=== PATIENT | male | born 1940 | race Caucasian/White ===

== ENCOUNTER 2018-07-13 13:43 | Inpatient (IN) | payer MEDICARE ==
[~2018-07-13] VITALS: Ht 180.3 cm; Wt 90.0 kg
[2018-07-13 16:50] LABS: CHLORIDE 108 mEq/L (98-107)
[2018-07-13 16:51] LABS: BASOPHILS % 0.6 % (0.0-2.0); EOSINOPHILS % 0.8 % (0.0-5.0); HEMATOCRIT. 44.2 % (42.0-52.0); HEMOGLOBIN. 14.4 g/dL (14.0-18.0); LYMPHOCYTES % 11.6 % (20.0-50.0); MEAN CORPUSCULAR HEMOGLOBIN 23.4 pg (28.0-32.0); MEAN CORPUSCULAR VOLUME 71.9 fL (80.0-94.0); MEAN PLATELET VOLUME 8.6 fl (7.4-10.4); MONOCYTES % 5.1 % (2.0-8.0); NEUTROPHILS % 81.9 % (40.0-76.0); PLATELET 196 x1000/uL (130-400); RED BLOOD CELL COUNT 6.14 mill/uL (4.7-6.1); RED CELL DISTRIBUTION WIDTH 15.8 % (11.6-14.6)
[2018-07-13] MEDS ORDERED: SODIUM CHLORIDE 0.9% 1,000 ML IV SCH (20:32)
[2018-07-13] MEDS ORDERED: ACETAMINOPHEN 325MG TABLET PO PRN (20:45)
[2018-07-13] MEDS ORDERED: HYDROCODONE/ACETAMINOPHEN 5/325MG TABLET PO PRN (20:45)
[2018-07-13] MEDS ORDERED: CLONIDINE 0.1MG TABLET PO PRN (20:45)
[2018-07-13] MEDS ORDERED: ONDANSETRON HCL 4MG/2ML INJ IV PRN (20:45)
[2018-07-13] MEDS ORDERED: DOCUSATE SODIUM 100MG CAPSULE PO PRN (20:45)
[2018-07-13] MEDS ORDERED: GUAIFENESIN 200MG/10ML SUGAR FREE UDC PO PRN (20:45)
[2018-07-13 22:33] LABS: CLARITY URINE CLEAR (CLEAR); COLOR URINE YELLOW (YELLOW); KETONES URINE 1+ (NEGATIVE); LEUKOCYTE ESTERASE URINE NEGATIVE (NEGATIVE); NITRITE URINE NEGATIVE (NEGATIVE); OCCULT BLOOD URINE NEGATIVE (NEGATIVE); PH URINE 5.5 (4.5-8.0); PROTEIN URINE TRACE (NEGATIVE); SPECIFIC GRAVITY URINE 1.019 (1.005-1.030); UROBILINOGEN URINE 0.2 E.U./dL (0.2-1.0)
[2018-07-13 22:49] LABS: *AMPHETAMINES SCREEN URINE NEGATIVE (NEGATIVE)
[2018-07-13 22:50] LABS: *BARBITURATES SCREEN URINE NEGATIVE (NEGATIVE); *BENZODIAZEPINES SCREEN URINE NEGATIVE (NEGATIVE); *COCAINE SCREEN URINE NEGATIVE (NEGATIVE); CANNABINOID URINE SCREEN NEGATIVE (NEGATIVE); METHADONE URINE SCREEN NEGATIVE (NEGATIVE); OPIATES URINE SCREEN NEGATIVE (NEGATIVE); PHENCYCLIDINE URINE SCREEN NEGATIVE (NEGATIVE)
[2018-07-14 05:15] LABS: CHLORIDE 107 mEq/L (98-107)
[2018-07-14 05:17] LABS: EOSINOPHILS % 5.1 % (0.0-5.0); HEMATOCRIT. 38.6 % (42.0-52.0); HEMOGLOBIN. 12.4 g/dL (14.0-18.0); LYMPHOCYTES % 28.2 % (20.0-50.0); MEAN CORPUSCULAR HEMOGLOBIN 23.2 pg (28.0-32.0); MEAN CORPUSCULAR VOLUME 72.1 fL (80.0-94.0); MEAN PLATELET VOLUME 8.4 fl (7.4-10.4); MONOCYTES % 9.9 % (2.0-8.0); NEUTROPHILS % 55.8 % (40.0-76.0); PLATELET 190 x1000/uL (130-400); RED BLOOD CELL COUNT 5.35 mill/uL (4.7-6.1)
[2018-07-14 05:23] LABS: HDL CHOLESTEROL 33 mg/dL (40-59); LDL CHOLESTEROL 124 mg/dL (5-100)
[2018-07-14 05:24] LABS: CREATINE KINASE 145 IU/L (39-308); T4 FREE 0.94 ng/dL (0.76-1.46)
[2018-07-14 08:20] VITALS: BP 148/85
[2018-07-14] MEDS ORDERED: ENOXAPARIN 40MG/0.4ML SYR SUBCUT SCH (09:00)
[2018-07-14] MEDS ORDERED: SAW500CA12 PO (09:52)
[2018-07-14] MEDS ORDERED: RED600CA5 PO (09:52)
[2018-07-14] MEDS ORDERED: NIAC250C2 MT (09:52)
[2018-07-14] MEDS ORDERED: UBID100C45 PO (09:52)
[2018-07-14] MEDS ORDERED: FISH MT (09:52)
[2018-07-14] MEDS ORDERED: VIT1TABL5 MT (09:52)
[2018-07-14] MEDS: ASPIRIN 81MG EC TABLET PO SCH (09:59)
[2018-07-14 12:00] VITALS: BP_SYST 142; BP_SYST 180; BP_DIAS 71; BP_DIAS 89
[2018-07-14 14:15] VITALS: BP 135/85
[2018-07-14 16:00] VITALS: BP 152/76
[2018-07-14 16:36] LABS: CREATINE KINASE 135 IU/L (39-308)
[2018-07-14 16:38] LABS: CREATINE KINASE MB FRACTION 2.7 ng/mL (0.5-3.6)
[2018-07-14] MEDS ORDERED: RIVAROXABAN 20 MG TABLET PO SCH (17:00)
[2018-07-14 20:00] VITALS: BP 142/68
[2018-07-14] MEDS ORDERED: ATORVASTATIN CALCIUM 20MG TABLET PO SCH (21:00)
[2018-07-15] VITALS: BP 122/58
[2018-07-15 04:00] VITALS: BP 129/77
[2018-07-15 07:27] LABS: CREATINE KINASE 88 IU/L (39-308); CREATINE KINASE MB FRACTION 1.3 ng/mL (0.5-3.6)
[2018-07-15] MEDS: ASPIRIN 81MG EC TABLET PO SCH (08:50)
[2018-07-15 11:28] VITALS: BP 144/80
== END 2018-07-15 11:47 | disposition home or self-care (01) | DRG 74 ==
LOC: ER 13:50 → 8WST 19:07 → EDBEDREQ 19:13 → EDBEDREQTM 19:13 → ENRESERV 07-14 07:32
PROVIDERS: ADMIT Hospitalist; ATTEND Hospitalist
DX: G90.8 Other disorders of autonomic nervous system (principal); I48.92 Unspecified atrial flutter; D68.59 Other primary thrombophilia; R55 Syncope and collapse; I10 Essential (primary) hypertension; E78.5 Hyperlipidemia, unspecified; J44.9 Chronic obstructive pulmonary disease, unspecified; Z87.891 Personal history of nicotine dependence; I07.1 Rheumatic tricuspid insufficiency
CPT/HCPCS: 36415; 71045; 78582; 80061; 80305; 82550; 82553; 83036; 83880; 84439; 84443; 84484; 85379; 93005; 93306; 93880; 93970; 96372; 99285; A9558; J1650